=== PATIENT | female | born 2000 | race Caucasian/White ===

== ENCOUNTER 2022-09-08 09:29 | Emergency (ER) | payer OTHER, SELFPAY ==
[2022-09-08] VITALS (9 sets, daily range): BP systolic 86–105; BP diastolic 52–67; PULSE 71–90; RESP 17–20; TEMP 37.3; O2SAT 96–99; BMI 21.0
--- NOTE | 2022-09-08 09:41 | DI.RAD.S_ITS ---
PROCEDURE: XR CHEST 1V INDICATIONS: chest pain TECHNIQUE: One view of the chest was acquired. COMPARISON: None. FINDINGS: Surgical changes and devices: None. Lungs and pleura: Lungs are clear. No pleural effusions or pneumothorax. Mediastinum: Mediastinal contours appear normal. Heart size is normal. Bones and chest wall: No suspicious bony lesions. Overlying soft tissues appear unremarkable. IMPRESSION: No acute cardiopulmonary disease. Dictated by: Roni Ceuvas M.D. on 09/08/2022 at 10:25 Approved by: Roni Cuevas M.D. on 09/08/2022 at 10:26
[2022-09-08] MEDS: SODIUM CHLORIDE 0.9% 1,000 ML 1000 ML IV (09:59)
[2022-09-08 10:00] LABS: Prothrombin Time 11.6 SECONDS (10.1-12.7)
[2022-09-08 10:02] LABS: PTT Partial Thromboplastin Tim 31 SECONDS (26-36)
[2022-09-08 10:03] LABS: Alanine Aminotransferase 15 IU/L (<35); Albumin 4.6 g/dL (3.5-5.0); Albumin Globulin Ratio 1.8 (1.0-2.8); Alkaline Phosphatase 47 U/L (38-126); Aspartate Aminotransferase 18 IU/L (14-36); BUN Creatinine Ratio 10.9 (6-22); Bilirubin Total 1.4 mg/dL (0.2-1.3); Blood Urea Nitrogen 7 mg/dL (7-17); Carbon Dioxide 24 mmol/L (22-32); Chloride 106 mmol/L (98-107); Creatine Kinase 54 U/L (30-135); Estimated Glomerular Filt Rate > 60 mL/min (>60); Globulin 2.6 g/dL (1.7-4.1); Glucose 90 mg/dL (70-100); HEMOLYSIS < 15 (0-50); Lipase 136 U/L (23-300); Magnesium 2.2 mg/dL (1.6-2.3); Potassium 3.7 mmol/L (3.4-5.1); Sodium 138 mmol/L (137-145); Total Protein 7.2 g/dL (6.3-8.2)
[2022-09-08 10:09] LABS: Add Manual Diff / Slide Review NO; Basophils Absolute Auto 100 /uL (0-100); Basophils Percent Auto 1.1 % (0-2); Eosinophils Absolute Auto 200 /uL (0-450); Eosinophils Percent Auto 3.6 % (2-4); Hematocrit 39.7 % (36-46); Hemoglobin 14.2 g/dL (12.0-16.0); Lymphocytes Absolute Auto 2400 /uL (1100-4500); Lymphocytes Percent Auto 45.6 % (25-40); Mean Corpuscular HGB Conc 35.7 % (30-36); Mean Corpuscular Hemoglobin 32.8 PG (26-34); Monocytes Absolute Auto 400 /uL (0-900); Monocytes Percent Auto 7.8 % (3-14); Neutrophils Absolute Auto 2200 /uL (1500-7000); Neutrophils Percent Auto 41.9 % (50-75); Platelet Count 279 X10^3/uL (150-400); Red Blood Cell Count 4.31 X10^6/uL (4.0-5.2); Red Cell Distribution Width 12.3 % (11.6-14.8); White Blood Cell Count 5.3 X10^3/uL (4.5-11.0)
[2022-09-08 10:15] LABS: Troponin I < 0.012 ng/mL (0.01-0.034)
--- NOTE | 2022-09-08 10:16 | PC.NURSE ---
Pt presents for unwitnessed syncopal episode at home, did not hit head, no thinners. &Ox4, complains of dizziness. VSS
--- NOTE | 2022-09-08 10:27 | ED.SYNCOPE ---
HPI - Syncope General Chief Complaint: Syncope Stated Complaint: Fainted this morning, dizzy/lightheaded/nausea Time Seen by Provider: 09/08/22 10:24 Source: patient Mode of arrival: Ambulatory Limitations: no limitations History of Present Illness HPI narrative: This is a 22-year-old female with complaint of syncopal episode this morning. She states she has orthostatic hypotension she sometimes gets lightheaded. She was getting dressed this morning felt dizzy felt like she might pass out went to lay down states she did black out she thinks for a couple seconds at the most. Afterwards she still felt a little bit dizzy and has continued to. So she stayed in bed for little bit contacted her father. She is not had any more syncopal episodes. She has had syncope in the past she states it is usually with something like having her blood drawn. She has felt a little bit more dizzy lately she tracks her blood pressure on average she is 90/60 but states she is gotten as low as 84/52. She is little bit of a mild headache, no chest pain she is felt a little short of breath but states this isn't anything new. She little bit of nausea this morning when she woke up. She has not had any vomiting. She is had a little bit of diarrhea this week. No black or bloody stools. No dysuria urgency or frequency. No new swelling in her extremities. Her daily medications or 40 mg of Prozac and she has a Mirena IUD in place. She would a tonsillectomy at age 10. Allergic to amoxicillin. No tobacco, no alcohol. Occasional THC from a dispensary but no other illicit. Primary care is in [place], she is in the area for the summer on school break. Related Data Home Medications Medication Instructions Recorded Confirmed fluoxetine 40 mg capsule 40 mg PO DAILY 09/08/22 09/08/22 Allergies Allergy/AdvReac Type Severity Reaction Status Date / Time amoxicillin Allergy Intermediate Rash Verified 09/08/22 09:40 Review of Systems Review of Systems ROS Unobtainable: All systems reviewed & are unremarkable except as noted in HPI and below Patient History Social History Smoking Status: Never smoker Smoking Status: Never smoker alcohol intake frequency: 0-2 drinks per day Substance Use Type: marijuana Exam Narrative Exam Narrative: GENERAL: Alert and oriented x three, well-nourished female in mild distress. HEENT: Head normocephalic, atraumatic, EOMI, pupils reactive, face symmetric, moist mucous membranes NECK: Supple, full range of motion CARDIOVASCULAR: Regular rate and rhythm without murmurs, rubs or gallops. RESPIRATORY: Breath sounds equal bilaterally, no wheezes rales or rhonchi. No tachypnea or accessory muscle use. Speaks in full sentences. ABDOMEN: Soft, nontender. Nondistended. Normoactive bowel sounds all 4 quadrants. No guarding or rebound, rigidity, no mass : No CVA tenderness EXTREMITIES: Normal range of motion, no clubbing or edema. Neurovascularly intact NEUROLOGICAL: Cranial nerves II through XII grossly intact. Moving all extremities. Patient was able to ambulate to the bathroom after evaluation to give urine sample. SKIN: Warm, dry, no petechiae, no rashes or lesions. Initial Vital Signs Initial Vital Signs: Vital Signs Pulse Rate 90 09/08/22 09:34 Blood Pressure 105/63 09/08/22 09:34 Pulse Oximetry 98 09/08/22 09:34 Course Orders Ordered: ED Orders 09/08/22 09:40 Comprehensive Metabolic Panel Stat D Dimer Stat Lipase Stat Magnesium Stat PTT Partial Thromboplastin Yosvany Stat Prothrombin Time INR Stat Troponin & CK Cardiac Panel Stat 09/08/22 09:41 XR chest 1V Stat Complete Blood Count AUTO DIFF Stat 09/08/22 09:55 EKG-12 Lead Stat Discontinued Medications Sodium Chloride (Normal Saline 0.9%) 1,000 mls @ 1,000 mls/hr IV BOLUS ONE Stop: 09/08/22 10:40 Last Infusion: 09/08/22 10:43 Dose: 0 mls/hr Documented By: Admin: 09/08/22 09:59 Dose: 1,000 mls/hr Documented By: JUAN MIGUEL Vital Signs Vital signs: Vital Signs - 8 hr 09/08/22 09:35 09/08/22 09:34 09/08/22 09:34 Temperature 99.2 F Pulse Rate 90 90 Respiratory Rate 18 Blood Pressure 105/63 105/63 Pulse Oximetry 98 98 Oxygen Delivery Method Room Air 09/08/22 10:00 09/08/22 10:10 09/08/22 10:10 Temperature Pulse Rate 87 86 Respiratory Rate Blood Pressure 102/67 Pulse Oximetry 98 97 Oxygen Delivery Method 09/08/22 10:30 09/08/22 10:30 09/08/22 10:56 Temperature Pulse Rate 75 Respiratory Rate 17 Blood Pressure 96/60 95/52 L Pulse Oximetry 98 Oxygen Delivery Method 09/08/22 10:56 09/08/22 11:00 09/08/22 11:00 Temperature Pulse Rate 76 73 Respiratory Rate 17 20 Blood Pressure 102/55 L Pulse Oximetry 99 96 Oxygen Delivery Method 09/08/22 11:30 09/08/22 11:38 Temperature Pulse Rate 71 Respiratory Rate Blood Pressure 86/52 L 87/52 L Pulse Oximetry 99 Oxygen Delivery Method Room Air MDM - Syncope Lab Data 09/08/22 09:41 09/08/22 09:40 Labs: Lab Results 09/08/22 09/08/22 09/08/22 Range/Units 09:40 09:40 09:40 WBC (4.5-11.0) X10^3/uL RBC (4.0-5.2) X10^6/uL Hgb (12.0-16.0) g/dL Hct (36-46) % MCV (80-100) fL MCH (26-34) PG MCHC (30-36) % RDW (11.6-14.8) % Plt Count (150-400) X10^3/uL Neut % (Auto) (50-75) % Lymph % (Auto) (25-40) % Rooks % (Auto) (3-14) % Eos % (Auto) (2-4) % Baso % (Auto) (0-2) % Neut # (Auto) (6210-3117) /uL Lymph # (Auto) (6679-7768) /uL Rooks # (Auto) (0-900) /uL Eos # (Auto) (0-450) /uL Baso # (Auto) (0-100) /uL PT 11.6 (10.1-12.7) SECONDS INR 1.0 (0.9-1.3) APTT 31 (26-36) SECONDS D-Dimer 261 (<500) ng/ml Sodium 138 (137-145) mmol/L Potassium 3.7 (3.4-5.1) mmol/L Chloride 106 (98-107) mmol/L Carbon Dioxide 24 (22-32) mmol/L BUN 7 (7-17) mg/dL Creatinine 0.64 (0.52-1.04) mg/dL Estimated GFR > 60 (>60) mL/min BUN/Creatinine Ratio 10.9 (6-22) Glucose 90 (70-100) mg/dL Calcium 9.0 (8.4-10.2) mg/dL Magnesium 2.2 (1.6-2.3) mg/dL Total Bilirubin 1.4 H (0.2-1.3) mg/dL AST 18 (14-36) IU/L ALT 15 (<35) IU/L Alkaline Phosphatase 47 (38-126) U/L Total Creatine Kinase 54 (30-135) U/L Troponin I < 0.012 (0.01-0.034) ng/mL Total Protein 7.2 (6.3-8.2) g/dL Albumin 4.6 (3.5-5.0) g/dL Globulin 2.6 (1.7-4.1) g/dL Albumin/Globulin Ratio 1.8 (1.0-2.8) Lipase 136 (23-300) U/L / Range/Units 09:41 WBC 5.3 (4.5-11.0) X10^3/uL RBC 4.31 (4.0-5.2) X10^6/uL Hgb 14.2 (12.0-16.0) g/dL Hct 39.7 (36-46) % MCV 92.0 (80-100) fL MCH 32.8 (26-34) PG MCHC 35.7 (30-36) % RDW 12.3 (11.6-14.8) % Plt Count 279 (150-400) X10^3/uL Neut % (Auto) 41.9 L (50-75) % Lymph % (Auto) 45.6 H (25-40) % Rooks % (Auto) 7.8 (3-14) % Eos % (Auto) 3.6 (2-4) % Baso % (Auto) 1.1 (0-2) % Neut # (Auto) 2200 (1353-7434) /uL Lymph # (Auto) 2400 (3224-5846) /uL Rooks # (Auto) 400 (0-900) /uL Eos # (Auto) 200 (0-450) /uL Baso # (Auto) 100 (0-100) /uL PT (10.1-12.7) SECONDS INR (0.9-1.3) APTT (26-36) SECONDS D-Dimer (<500) ng/ml Sodium (137-145) mmol/L Potassium (3.4-5.1) mmol/L Chloride (98-107) mmol/L Carbon Dioxide (22-32) mmol/L BUN (7-17) mg/dL Creatinine (0.52-1.04) mg/dL Estimated GFR (>60) mL/min BUN/Creatinine Ratio (6-22) Glucose (70-100) mg/dL Calcium (8.4-10.2) mg/dL Magnesium (1.6-2.3) mg/dL Total Bilirubin (0.2-1.3) mg/dL AST (14-36) IU/L ALT (<35) IU/L Alkaline Phosphatase (38-126) U/L Total Creatine Kinase (30-135) U/L Troponin I (0.01-0.034) ng/mL Total Protein (6.3-8.2) g/dL Albumin (3.5-5.0) g/dL Globulin (1.7-4.1) g/dL Albumin/Globulin Ratio (1.0-2.8) Lipase (23-300) U/L Point of Care Testing Test Results Negative Urine Dip Bedside Urine Glucose Negative Bedside Urine Bilirubin - Negative Bedside Urine Ketone - Negative Urine Specific [place] 1.005 Bedside Urine Occult Blood - Negative Bedside Urine pH 6.5 Bedside Urine Protein - Negative Bedside Urine Urobilinogen - Negative Bedside Urine Nitrite - Negative Bedside Urine Leukocytes - Negative Esterase Imaging Data Chest x-ray: Radiologist's Impression: [address] [address] XRay Report Signed Patient: Nidia Robb MR#: [id number] : 2000 Acct:[id number] Age/Sex: 22 / F Date of Service: 09/08/22 Loc: ED Accession Number: [id number] ?? Procedure: XR chest 1V Ordering Provider: Jennifer Gama D.O. PROCEDURE:? XR CHEST 1V ? INDICATIONS:? chest pain ? TECHNIQUE:? One view of the chest was acquired.? ? COMPARISON:? None. ? FINDINGS:? ? Surgical changes and devices:? None.? ? Lungs and pleura:? Lungs are clear.? No pleural effusions or pneumothorax.? ? Mediastinum:? Mediastinal contours appear normal.? Heart size is normal.? ? Bones and chest wall:? No suspicious bony lesions.? Overlying soft tissues appear unremarkable.? ? IMPRESSION:? No acute cardiopulmonary disease. ? ? Dictated by: Roni Cuevas M.D. on 09/08/2022 at 10:25 ? ? Approved by: Roni Cuevas M.D. on 09/08/2022 at 10:26?? ECG Data Attestation: I personally reviewed and interpreted this ECG as follows: Prior ECG tracings: not available for review Interpretation: Sinus rhythm rate of 78 [place] 152 QRS [address]TC [address] No acute ST changes appreciated. No priors for comparison. MDM Narrative Medical decision making narrative: This is a 22-year-old female who presents with complaint of syncope, patient states that she is had these episodes in the past but usually initiated by a blood draw or similar event. Today she was just getting ready she has noted her blood pressure been a little bit lower than typical sometimes as low as 84/52 she states average is about 90/60. She had a mild headache a little bit of shortness of breath some mild nausea and diarrhea this week. Denies any fevers. No chest pain or pressure, she states his shortness of breath is not new has been present for some time. She describes a history of orthostatic hypotension. She is on Prozac does have an IUD in place. Dimer was added on along with CBC, CMP coags, LFTs and troponin. Workup is negative, dimer ?? Chest x-ray shows no acute change. Urine and dip is negative. Patient had a L of fluids feels improved, she is able to ambulate to the bathroom to give urine sample. Patient has been following with cardiology and plans for follow up. Discussed return precautions. Discharge Plan Departure Patient Disposition: Home Clinical Impression: Syncope Instructions: DI for Syncope in Adults (Fainting) Activity Restrictions/Additional Instructions: Please follow-up for recheck. I would recommend you make sure to stay hydrated and drink plenty of fluids. You may continue your home medications as prescribed. Please return for recurrent episodes, new chest pain, shortness of breath, lightheadedness recurrent passing out, persistent vomiting, black or bloody stools, new swelling of your extremities or other new or concerning changes Prescriptions: No Action fluoxetine 40 mg capsule 40 mg PO DAILY Referrals: Terri Clements ARNP [Primary Care Provider] - Stand Alone Forms: Patient Portal/API
[2022-09-08 11:16] LABS: D Dimer 261 ng/ml (<500)
== END 2022-09-08 11:47 | disposition home or self-care (01) ==
PROVIDERS: Emergency Provider Emergency Medicine; PCP Nurse Practitioner Family; Referring Provider Physician Assistant
DX: R55 Syncope and collapse (principal); R07.9 Chest pain, unspecified
CPT/HCPCS: 36415; 71045; 73610; 80053; 81003; 81025; 82550; 83690; 83735; 84484; 85025; 85379; 85610; 85730; 93005; 99284

== ENCOUNTER → 2023-02-10 07:57 | Outpatient (CLI) | payer OTHER, SELFPAY ==
--- NOTE | 2023-02-04 15:17 | DI.RAD.S_ITS ---
PROCEDURE: XR ANKLE LT MIN 3V INDICATIONS: left ankle pain after ice skating injury TECHNIQUE: 3 views of the ankle were acquired. COMPARISON: None. FINDINGS: Bones: No fractures or dislocations. Ankle mortise is normally aligned. No suspicious bony lesions. Soft tissues: No tibiotalar joint effusion. Achilles tendon appears normal. IMPRESSION: No acute bony abnormality or significant effusion. Dictated by: Matthew Mejia M.D. on 02/04/2023 at 16:07 Approved by: Matthew Mejia M.D. on 02/04/2023 at 16:08
== END ==
PROVIDERS: PCP Nurse Practitioner Family; Referring Provider Physician Assistant; Visit Provider Physician Assistant
DX: M25.572 Pain in left ankle and joints of left foot (principal)
CPT/HCPCS: 73610

== ENCOUNTER → 2023-08-30 15:41 | Outpatient (CLI) | payer OTHER, SELFPAY ==
[2023-08-30 18:24] LABS: Add Manual Diff / Slide Review NO; Basophils Absolute Auto 100 /uL (0-100); Basophils Percent Auto 1.1 % (0-2); Eosinophils Absolute Auto 100 /uL (0-450); Eosinophils Percent Auto 2.4 % (2-4); Hematocrit 41.1 % (36-46); Hemoglobin 14.4 g/dL (12.0-16.0); Lymphocytes Absolute Auto 2300 /uL (1100-4500); Lymphocytes Percent Auto 41.3 % (25-40); Mean Corpuscular Volume 94.4 fL (80-100); Monocytes Absolute Auto 500 /uL (0-900); Monocytes Percent Auto 8.8 % (3-14); Neutrophils Absolute Auto 2600 /uL (1500-7000); Neutrophils Percent Auto 46.4 % (50-75); Platelet Count 294 X10^3/uL (150-400); Red Blood Cell Count 4.35 X10^6/uL (4.0-5.2); Red Cell Distribution Width 12.2 % (11.6-14.8); White Blood Cell Count 5.5 X10^3/uL (4.5-11.0)
[2023-08-30 18:41] LABS: Alanine Aminotransferase 9 IU/L (<35); Albumin 4.5 g/dL (3.5-5.0); Albumin Globulin Ratio 1.7 (1.0-2.8); Alkaline Phosphatase 45 U/L (38-126); Aspartate Aminotransferase 19 IU/L (14-36); BUN Creatinine Ratio 12.1 (6-22); Bilirubin Total 1.7 mg/dL (0.2-1.3); Blood Urea Nitrogen 8 mg/dL (7-17); Calcium 9.1 mg/dL (8.4-10.2); Carbon Dioxide 24 mmol/L (22-32); Chloride 106 mmol/L (98-107); Estimated Glomerular Filt Rate > 60 mL/min (>60); Globulin 2.6 g/dL (1.7-4.1); Glucose 92 mg/dL (70-100); HEMOLYSIS < 15 (0-50); Potassium 3.7 mmol/L (3.4-5.1); Sodium 139 mmol/L (137-145); Total Protein 7.1 g/dL (6.3-8.2)
[2023-08-30 19:10] LABS: TSH w/ Reflex to FT4 0.53 uIU/mL (0.47-4.68)
[2023-08-30 19:28] LABS: Vitamin B12 320 pg/mL (239-931)
== END ==
PROVIDERS: PCP Family Medicine; Referring Provider Family Medicine; Visit Provider Family Medicine
DX: I95.1 Orthostatic hypotension (principal); R53.83 Other fatigue
CPT/HCPCS: 36415; 80053; 82607; 84443; 85025

== ENCOUNTER → 2024-02-24 17:58 | Outpatient (CLI) | payer OTHER, SELFPAY ==
[2024-02-24 18:47] LABS: Influenza A - CEPHEID Flu A NEGATIVE (NEGATIVE); Influenza B - CEPHEID Flu B NEGATIVE (NEGATIVE); Respiratory Syncytial Virus Negative (Negative)
[2024-02-24 18:52] LABS: COVID-19 CEPHEID 4-PLEX PCR Negative (Negative)
== END ==
PROVIDERS: PCP Family Medicine; Visit Provider Physician Assistant Medical
DX: R05.1 Acute cough (principal)
CPT/HCPCS: 0241U

== ENCOUNTER → 2024-02-24 18:15 | Outpatient (CLI) | payer OTHER, SELFPAY ==
--- NOTE | 2024-02-24 18:17 | DI.RAD.S_ITS ---
PROCEDURE: XR CHEST 2V INDICATIONS: Cough and shortness breath TECHNIQUE: 2 views of the chest were acquired. COMPARISON: , CR, XR CHEST 1V, 09/08/2022, 9:49. FINDINGS: Surgical changes and devices: None. Lungs and pleura: Lungs are clear. No pleural effusions or pneumothorax. Mediastinum: Mediastinal contours are normal. Heart size is normal. Bones and chest wall: No suspicious bony abnormalities. Soft tissues appear unremarkable. IMPRESSION: No acute cardiopulmonary abnormality is seen. Dictated by: Taco Asencio M.D. on 02/24/2024 at 19:43 Approved by: Taco Asencio M.D. on 02/24/2024 at 19:46
== END ==
LOC: RAD 18:16
PROVIDERS: PCP Family Medicine; Referring Provider Physician Assistant Medical; Visit Provider Physician Assistant Medical
DX: R05.1 Acute cough (principal)
CPT/HCPCS: 0241U; 71046

== ENCOUNTER → 2024-08-15 09:27 | Outpatient (CLI) | payer OTHER, SELFPAY ==
[2024-08-15 10:47] LABS: Hematocrit 39.7 % (36-46); Mean Corpuscular HGB Conc 35.4 % (30-36); Mean Corpuscular Hemoglobin 32.9 PG (26-34); Platelet Count 288 X10^3/uL (150-400); Red Blood Cell Count 4.27 X10^6/uL (4.0-5.2); Red Cell Distribution Width 13.2 % (11.6-14.8); White Blood Cell Count 6.7 X10^3/uL (4.5-11.0)
[2024-08-15 12:09] LABS: HIV 1 & 2 Ab/Ag 4th Gen Combo NEGATIVE (NEGATIVE); Hep C Virus Ab w/Reflex Quant NEGATIVE s/c (NEGATIVE)
[2024-08-15 12:20] LABS: Urine N gonorrhoeae NOT DETECTED
[2024-08-15 12:27] LABS: Urine Chlamydia NOT DETECTED
[2024-08-15 17:44] LABS: Alanine Aminotransferase 12 IU/L (<35); Albumin 4.6 g/dL (3.5-5.0); Albumin Globulin Ratio 1.9 (1.0-2.8); Alkaline Phosphatase 57 U/L (38-126); Aspartate Aminotransferase 21 IU/L (14-36); BUN Creatinine Ratio 20.3 (6-22); Bilirubin Total 0.9 mg/dL (0.2-1.3); Blood Urea Nitrogen 13 mg/dL (7-17); Calcium 9.6 mg/dL (8.4-10.2); Carbon Dioxide 23 mmol/L (22-32); Chloride 105 mmol/L (98-107); Estimated Glomerular Filt Rate > 60 mL/min (>60); Globulin 2.4 g/dL (1.7-4.1); Glucose 76 mg/dL (70-99); HEMOLYSIS < 15 (0-50); Potassium 4.3 mmol/L (3.4-5.1); Sodium 138 mmol/L (137-145)
== END ==
PROVIDERS: PCP Family Medicine; Referring Provider Family Medicine; Visit Provider Family Medicine
DX: Z00.00 Encounter for general adult medical examination without abnormal findings (principal); Z11.59 Encounter for screening for other viral diseases; Z11.4 Encounter for screening for human immunodeficiency virus [HIV]; Z11.8 Encounter for screening for other infectious and parasitic diseases; I95.1 Orthostatic hypotension
CPT/HCPCS: 36415; 80053; 85027; 86803; 87389; 87491; 87591

== ENCOUNTER 2025-02-05 14:01 | Emergency (ER) | payer OTHER, SELFPAY ==
[2025-02-05 14:15] VITALS: BP 126/81; PULSE 78; RESP 15; TEMP 36.9; O2SAT 100; BMI 21.4
[2025-02-05] MEDS: TET,DIPH,PERTUSS(ACELL),VAC/PF 0.5 ML SYRINGE IM (14:27)
[2025-02-05 16:51] VITALS: BP 120/75; PULSE 81; RESP 16; O2SAT 98
--- NOTE | 2025-02-05 19:17 | ED.WOUNDLAC ---
HPI - Wound/Laceration General Chief Complaint: Wound/Laceration Stated Complaint: Lt hand laceration Time Seen by Provider: 02/05/25 14:44 Source: patient Mode of arrival: Family Vehicle History of Present Illness HPI narrative: 24-year-old female presents to the ED status post a left thumb tip laceration sustained due to a knife accident at work today. Tetanus status is unknown. No numbness, tingling, weakness. Patient endorses pain at the tip of the finger. Bleeding is controlled with pressure. Related Data Home Medications ?Medication ?Instructions ?Recorded ?Confirmed levonorgestrel intrauterine 07/11/23 08/15/24 midodrine 5 mg tablet 5 mg PO TID 08/01/24 08/15/24 Previous Rx's ?Medication ?Instructions ?Recorded fluoxetine 20 mg capsule (Prozac) 20 mg PO DAILY #90 caps 08/01/24 Allergies Allergy/AdvReac Type Severity Reaction Status Date / Time amoxicillin Allergy Intermediate Rash Verified 02/05/25 14:14 Review of Systems Constitutional Constitutional: Denies chills, Denies fatigue, Denies fever(s), Denies frequent falls, Denies lethargy and Denies weakness Eyes Eyes: Denies change in vision, Denies eye discharge, Denies irritation and Denies loss of vision ENT Ears, Nose, Mouth, and Throat: Denies change in voice, Denies dizziness, Denies neck pain, Denies sore throat and Denies throat swelling Cardiovascular Cardiovascular: Denies chest pain, Denies irregular heart rhythm, Denies lightheadedness, Denies palpitations, Denies dyspnea, Denies dyspnea on exertion and Denies orthopnea Respiratory Respiratory: Denies cough, Denies dyspnea, Denies dyspnea on exertion and Denies wheezing Gastrointestinal Gastrointestinal: Denies abdominal pain, Denies change in bowel habits, Denies diarrhea, Denies nausea and Denies vomiting Musculoskeletal Musculoskeletal: Denies neck pain and Denies numbness Integumentary/Breasts Skin/Breast: Denies pruritus, Denies erythema, Denies rash and Reports wounds Comments: Left thumb tip laceration Neurologic Neurologic: Denies behavioral changes, Denies confusion, Denies dizziness, Denies frequent falls, Denies loss of vision, Denies numbness and Denies weakness Psychiatric Psychiatric: Denies anxiety, Denies behavioral changes, Denies confusion, Denies depression, Denies homicidal ideation and Denies suicidal ideation Endocrine Endocrine: Denies fatigue, Denies flushing and Denies palpitations Hematologic/Lymphatic Hematologic/Lymphatic: Denies easy bruising Allergic/Immunologic Allergic/Immunologic: Denies urticaria, Denies throat swelling and Denies wheezing Patient History Medical History Eczema Allergies Migraines ADHD Scoliosis Fractures Cataracts, bilateral Ovarian cyst (~2017) Dysmenorrhea Orthostatic hypotension (~2021) Surgical History Anesthesia History of colonoscopy (~2022) [place]uyves[place] teeth removed (~2019) History of tonsillectomy (~2009) Strabismus (~2007) Family History Mother Transverse myelitis History of heart disease Hypertension Mental health problem Grandfather History of heart disease Social History Smoking Status: Never smoker Smoking Status: Never smoker alcohol intake frequency: 0-2 drinks per day Exam Narrative Exam Narrative: Const General:?cooperative, healthy appearing and comfortable [facility] Head:?normal to inspection Ears:?hearing grossly normal bilaterally Nose:?external nose normal Face and sinus:?normal facial exam and sinuses nontender Mouth:?oral mucosae normal Throat:?posterior oropharynx normal Eyes General:?appearance normal, both eyes and all related structures Neck Neck:?normal visual inspection and no lymphadenopathy noted Resp Effort & Inspection:?normal respiratory effort Auscultation:?clear to auscultation bilaterally Cardio Rate:?regular rate Rhythm:?regular rhythm Integumentary There is a small laceration to the tip of the left thumb. No bony involvement. No deeper structures visualized on exam. Neurovascularly intact. Bleeding controlled with pressure. Neuro General:?patient alert, patient awake and patient oriented x3 Initial Vital Signs Initial Vital Signs: Vital Signs Temperature 98.4 F 02/05/25 14:15 Pulse Rate 78 02/05/25 14:15 Respiratory Rate 15 02/05/25 14:15 Blood Pressure 126/81 02/05/25 14:15 Pulse Oximetry 100 02/05/25 14:15 Oxygen Delivery Method Room Air 02/05/25 14:15 Procedures Laceration Repair Laceration 1: Site: hand Side (If applicable): left Size (cm): 1 Description: linear Depth: simple, single layer Pre-repair: wound explored, irrigated extensively and deep structures intact Skin layer closed with: dermabond Course Orders Ordered: Discontinued Medications Diphtheria/Tetanus/Acell Pertussis (Tet,Diph,Pertuss(Acell),Vac/Pf 0.5 Ml Syringe) 0.5 ml IM .ONCE ONE Stop: 02/05/25 14:24 Last Admin: 02/05/25 14:27 Dose: 0.5 ml Documented By: AYO Vital Signs Vital signs: Vital Signs - 8 hr 02/05/25 14:15 02/05/25 16:51 Temperature 98.4 F Pulse Rate 78 81 Respiratory Rate 15 16 Blood Pressure 126/81 120/75 Pulse Oximetry 100 98 Oxygen Delivery Method Room Air Room Air MDM - Wound/Laceration MDM Narrative Medical decision making narrative: 24-year-old female presents to the ED status post a left thumb tip laceration sustained due to a knife accident at work today. There is a small laceration to the tip of the left thumb. The wound was soaked, repaired with glue, bulky bandage applied. Tetanus was updated. ED return precautions were discussed with patient. Patient verbalized understanding. Medical records reviewed: Yes Discharge Plan Departure Patient Disposition: Home Clinical Impression: Laceration Instructions: DI for Minor Laceration Activity Restrictions/Additional Instructions: You were evaluated in the emergency department today for a finger injury. The injury was repaired with glue and your finger has been bandaged with a bulky dressing. Please continue using a bulky dressing to protect the finger. Your tetanus was updated today, which is valid for the next 10 years. Please watch for signs of infection including worsening redness, swelling, pain, discharge, warmth. Return to the ED if you note any signs of infection. Prescriptions: No Action levonorgestrel intrauterine Rx Instructions: Placed in January 2023 midodrine 5 mg tablet 5 mg PO TID fluoxetine [Prozac] 20 mg capsule 20 mg PO DAILY Qty: 90 3RF Referrals: Tammie Lundy DO [Primary Care Provider, Family Practice] Stand Alone Forms: Patient Portal/API
== END 2025-02-05 18:01 | disposition home or self-care (01) ==
PROVIDERS: Emergency Provider Student in an Organized Health Care Education/Training Program; PCP Family Medicine
DX: S61.012A Laceration without foreign body of left thumb without damage to nail, initial encounter (principal); W26.0XXA Contact with knife, initial encounter; Z23 Encounter for immunization
CPT/HCPCS: 12001; 99283; 90715